=== PATIENT | female | born 1985 | race Caucasian/White ===

== ENCOUNTER 2017-01-22 17:17 | Inpatient (IN) | payer MEDICAID, OTHER ==
[~2017-01-22] VITALS: Ht 154.9 cm; Wt 68.5 kg
[2017-01-22] MEDS ORDERED: LACTATED RINGERS 1,000 ML IV SCH (17:38)
[2017-01-22] MEDS ORDERED: OXYTOCIN 20 UNITS/LR PREMIX 1,000 ML IV SCH (17:38)
[2017-01-22] MEDS ORDERED: PROMETHAZINE 25 MG/ML VIAL IVP PRN (17:40)
[2017-01-22] MEDS ORDERED: METHYLERGONOVINE 0.2 MG/ML AMP IM SCH (17:40)
[2017-01-22] MEDS ORDERED: CARBOPROST 250 MCG/ML AMP IM PRN (17:40)
[2017-01-22] MEDS ORDERED: NALBUPHINE 10 MG/ML AMP IVP PRN (17:40)
[2017-01-22] MEDS ORDERED: AMPICILLIN 2,000 MG VIAL ONE (18:00)
[2017-01-22] MEDS ORDERED: AMPICILLIN 1,000 MG VIAL IVP SCH (18:00)
[2017-01-22] MEDS ORDERED: OXYTOCIN 20 UNITS/LR PREMIX 1,000 ML IV ONE (18:01)
[2017-01-22 18:07] VITALS: BP 121/88
[2017-01-22 18:08] LABS: BASOPHILS # (AUTO) 0.1 K/uL (0.00-0.22); BASOPHILS % (AUTO) 0.9 % (0.0-2.0); EOSINOPHILS # (AUTO) 0.2 K/uL (0-0.4); EOSINOPHILS % (AUTO) 2.2 % (0.0-4.0); HEMATOCRIT 40.8 % (36-48); HEMOGLOBIN 13.7 g/dL (12.0-16.0); LYMPHOCYTES # (AUTO) 1.6 K/uL (2.5-16.5); LYMPHOCYTES % (AUTO) 15.1 % (20.5-51.1); MEAN CORPUSCULAR HEMOGLOBIN 31 pg (27-31); MEAN CORPUSCULAR HGB CONC 34 g/dL (33-37); MEAN CORPUSCULAR VOLUME 91 fL (80-94); MONOCYTES # (AUTO) 0.4 K/uL (0.8-1.0); MONOCYTES % (AUTO) 3.4 % (1.7-9.3); NEUTROPHILS # (AUTO) 8.1 K/uL (1.8-7.7); NEUTROPHILS % (AUTO) 78.4 % (42.2-75.2); PLATELET COUNT (AUTO) 175 K/uL (140-450); RED BLOOD CELL COUNT(AUTO) 4.49 MIL/uL (4.20-5.40); WHITE BLOOD COUNT (AUTO) 10.4 K/uL (4.8-10.8)
[2017-01-22 18:22] LABS: BILIRUBIN,URINE NEGATIVE (NEGATIVE); BLOOD, URINE NEGATIVE (NEGATIVE); LEUKOCYTE ESTERASE ,URINE NEGATIVE (NEGATIVE); NITRITE, URINE NEGATIVE (NEGATIVE); PH,URINE 5.5 (5.0-9.0); PROTEIN,URINE NEGATIVE (NEGATIVE); UGLUCOSE NEGATIVE (NEGATIVE); UROBILINOGEN,URINE 0.2 EU/dL (0.2 - 1)
[2017-01-22] MEDS ORDERED: OXYTOCIN 10 UNITS/ML VIAL IM ONE (18:30)
[2017-01-22 18:34] LABS: APPEARANCE,URINE CLEAR (CLEAR); COLOR,URINE YELLOW (YELLOW)
[2017-01-22 18:44] LABS: BACTERIA,URINE FEW /HPF (None Seen); RBC,URINE NONE SEEN /HPF (0-5); SQUAMOUS EPITHELIAL CELL,UR FEW /LPF (0-3 (FEW)); WBC,URINE NONE SEEN /HPF (0-5)
[2017-01-22 18:44] LABS: ALBUMIN 3.1 g/dL (3.4-5.0); ANION GAP 12.8 (8-16); CALCIUM 8.3 mg/dL (8.5-10.1); CARBON DIOXIDE 24.7 mmol/L (21-32); CREATININE 0.9 mg/dL (0.6-1.3); POTASSIUM 3.5 mmol/L (3.5-5.1); TOTAL BILIRUBIN 0.4 mg/dL (0.0-1.0); TOTAL PROTEIN, SERUM 7.4 g/dL (6.4-8.2)
[2017-01-22 19:34] LABS: HIV RAPID SCREEN NON-REACTIVE (NON REACTIV)
[2017-01-22] MEDS ORDERED: INFLUENZA VIRUS VACCINE QUAD 0.5 ML SYR IMVAC SCH (22:00)
[2017-01-22] MEDS ORDERED: AMPICILLIN 1,000 MG VIAL ONE (22:03)
[2017-01-22] MEDS ORDERED: BUPIVACAINE 0.125%/NS PREMIX 250 ML ONE (22:06)
[2017-01-23] MEDS ORDERED: MISOPROSTOL 25 MCG TAB VG SCH (00:20)
[2017-01-23] MEDS ORDERED: MISOPROSTOL 25 MCG TAB ONE (00:36)
[2017-01-23] MEDS ORDERED: AMPICILLIN 1,000 MG VIAL ONE ×3 (02:05→15:54)
[2017-01-23] MEDS ORDERED: AMPICILLIN 1,000 MG in NACL 0.9% 50 ML IV SCH (04:00)
[2017-01-23] MEDS ORDERED: OXYTOCIN 20 UNITS/LR PREMIX 1,000 ML IV ONE ×2 (04:38→17:26)
--- NOTE | 2017-01-23 08:47 | NUR ---
PATIENT HAS BEEN SCREENED AND CATEGORIZED LOW NUTRITION RISK. PATIENT WILL BE SEEN WITHIN 7 DAYS OF ADMISSION. 01/29/[address]
[2017-01-23 09:10] LABS: RAPID PLASMA REAGIN NON-REACTIVE (Non Reactiv)
[2017-01-23] MEDS ORDERED: ROPIVACAINE 0.2%/NS PREMIX 250 ML EPI ONE (14:26)
[2017-01-23] MEDS ORDERED: OXYTOCIN 10 UNITS/ML VIAL ONE (14:41)
[2017-01-23] MEDS ORDERED: ACETAMINOPHEN 325 MG TAB ONE (15:41)
[2017-01-23] MEDS ORDERED: oxyCODONE/APAP 5/325 MG 1 TAB TAB PO PRN (17:30)
[2017-01-23] MEDS ORDERED: MEASLES, MUMPS, AND RUBELLA 1 VIAL SQVAC PRN (17:30)
[2017-01-23] MEDS ORDERED: BENZOCAINE/MENTHOL 20%-0.5% 60 GM CAN TP PRN (17:30)
[2017-01-23] MEDS ORDERED: TEMAZEPAM 15 MG CAP PO PRN (17:30)
[2017-01-23] MEDS ORDERED: METHYLERGONOVINE 0.2 MG TAB PO PRN (17:30)
[2017-01-23] MEDS ORDERED: IBUPROFEN 600 MG TAB ONE (19:50)
[2017-01-23] MEDS ORDERED: DOCUSATE SOD/SENNA 50/8.6 MG 1 TAB PO SCH (21:00)
[2017-01-24] MEDS: IBUPROFEN 800 MG TAB PO PRN (21:30)
[2017-01-25 06:41] LABS: HEMATOCRIT 34.9 % (36-48); HEMOGLOBIN 11.5 g/dL (12.0-16.0)
[2017-01-25] MEDS: IBUPROFEN 800 MG TAB PO PRN (20:38)
[2017-01-25] MEDS ORDERED: FERR325E14 PO ×2 (23:53→23:54)
[2017-01-25] MEDS ORDERED: IBUP-2213 PO (23:59)
[2017-01-26] MEDS ORDERED: IBUP-1842 PO ×2 (02:12→02:13)
== END 2017-01-25 23:53 | disposition home or self-care (01) | DRG 560 ==
LOC: MLD 17:17 → MFCC 01-23 23:35
PROVIDERS: ADMIT Obstetrics & Gynecology; ATTEND Obstetrics & Gynecology
PROC: 10D07Z6 Extraction of Products of Conception, Vacuum, Via Natural or Artificial Opening (ICD-10-PCS; principal; 2017-01-23)
PROC: 3E033VJ Introduction of Other Hormone into Peripheral Vein, Percutaneous Approach (ICD-10-PCS; 2017-01-23)
PROC: 3E0P7GC Introduction of Other Therapeutic Substance into Female Reproductive, Via Natural or Artificial Opening (ICD-10-PCS; 2017-01-23)
PROC: 00HU33Z Insertion of Infusion Device into Spinal Canal, Percutaneous Approach (ICD-10-PCS; 2017-01-23)
PROC: 3E0R3CZ (ICD-10-PCS; 2017-01-23)
DX: O69.1XX0 Labor and delivery complicated by cord around neck, with compression, not applicable or unspecified (principal); O99.824 Streptococcus B carrier state complicating childbirth; Z37.0 Single live birth; Z3A.39 39 weeks gestation of pregnancy; Z28.21 Immunization not carried out because of patient refusal
CPT/HCPCS: 36415; 51702; 80053; 81001; 85018; 85025; 86592; 86886; 86900; 86901; J0290; J2590; J2795; J3490; J7120